=== PATIENT | female | born 1960 | race African-American/Black ===

== ENCOUNTER 2017-05-17 11:34 | Inpatient (IN) | payer OTHER ==
[2017-05-17 11:53] VITALS: BMI 33.2
--- NOTE | 2017-05-17 14:41 | HP ---
CIWA Score - CIWA Score Nausea/Vomitin-No Nausea/No Vomiting Muscle Tremors: 4-Moderate,w/Arms Extend Anxiety: 3 Agitation: 4-Moderately Restless Paroxysmal Sweats: 3 Orientation: 0-Oriented Tacttile Disturbances: 0-None Auditory Disturbances: 0-None Visual Disturbances: 0-None Headache: 1-Very Mild CIWA-Ar Total Score: 15 Admission ROS BHS - HPI Chief Complaint: I am here for detox. Allergies/Adverse Reactions: Allergies Allergy/AdvReac Type Severity Reaction Status Date / Time No Known Allergies Allergy Verified 05/17/17 12:16 History of Present Illness: pt is a 57yr old female with a history of alcohol and crack/cocaine dependence seeking detox for treatment. Exam Limitations: No Limitations - Ebola screening Have you traveled outside of the country in the last 21 days: No Have you had contact with anyone from an Ebola affected area: No Have you been sick,other than usual withdrawal symptoms: No Do you have a fever: No - Review of Systems Constitutional: Chills, Diaphoresis, Changes in sleep EENT: reports: No Symptoms Reported Respiratory: reports: No Symptoms reported Cardiac: reports: Syncope GI: reports: Poor Fluid Intake, Indigestion : reports: No Symptoms Reported Musculoskeletal: reports: Back Pain Integumentary: reports: Flushing, Sweating Neuro: reports: Headache, Tingling, Tremors Endocrine: reports: Excessive Sweating, Flushing, Intolerance to Cold, Intolerance to Heat Hematology: reports: No Symptoms Reported Psychiatric: reports: Judgement Intact, Mood/Affect Appropiate, Orientated x3, Agitated, Anxious Other Systems: Reviewed and Negative Patient History - Patient Medical History Hx Anemia: No Hx Asthma: Yes (Pt is on MDI.) Hx Chronic Obstructive Pulmonary Disease (COPD): No Hx Cancer: No Hx Cardiac Disorders: No Hx Congestive Heart Failure: No Hx Hypertension: No Hx Hypercholesterolemia: No Hx Pacemaker: No HX Cerebrovascular Accident: No Hx Seizures: No Hx Dementia: No Hx Diabetes: No Hx Gastrointestinal Disorders: Yes (GERD) Hx Liver Disease: No Hx Genitourinary Disorders: No Hx Sexually Transmitted Disorders: No Hx Renal Disease (ESRD): No Hx Thyroid Disease: No Hx Human Immunodeficiency Virus (HIV): No (negative) Hx Hepatitis C: Yes (treated and undectable 2005) Hx Depression: Yes Hx Suicide Attempt: Yes (Tried to overdose in 2011) Hx Bipolar Disorder: No Hx Schizophrenia: No - Patient Surgical History Past Surgical History: No Hx Neurologic Surgery: No Hx Cataract Extraction: No Hx Cardiac Surgery: No Hx Lung Surgery: No Hx Breast Surgery: No Hx Breast Biopsy: No Hx Abdominal Surgery: No Hx Appendectomy: No Hx Cholecystectomy: No Hx Genitourinary Surgery: No Hx Section: No Hx Orthopedic Surgery: No Other Surgical History: L inguinal hernia repair Anesthesia Reaction: No - PPD History Previous Implant?: Yes Documented Results: Positive w/o proof Implanted On Prior [facility] Admission?: No PPD to be Administered?: No - Reproductive History Patient is a Female of Child Bearing Age (11 -55 yrs old): No Last Menstrual Period: 09/09/09 Patient : No - Smoking Cessation Smoking history: Current every day smoker Have you smoked in the past 12 months: Yes Aproximately how many cigarettes per day: 4 Hx Chewing Tobacco Use: No Initiated information on smoking cessation: Yes 'Breaking Loose' booklet given: 05/17/17 - Substance & Tx. History Hx Alcohol Use: Yes Hx Substance Use: Yes Substance Use Type: Alcohol, Cocaine Hx Substance Use Treatment: Yes (last detox [facility] 2011) - Substances Abused Alcohol Route: Oral Frequency: Daily Amount used: 8 24 OZ CANS OF BEER Age of first use: 19 Date of Last Use: 05/17/17 Crack Route: Smoking Frequency: Daily Amount used: $300 Age of first use: 24 Date of Last Use: 05/16/17 Family Disease History - Family Disease History Family Disease History: Diabetes: Mother (), [place]: Mother Admission Physical Exam [facility] - Vital Signs Vital Signs: Vital Signs - 24 hr 05/17/17 11:48 Temperature 96.7 F L Pulse Rate 77 Respiratory 20 Rate Blood Pressure 117/69 - Physical General Appearance: Yes: Appropriately Dressed, Moderate Distress, Tremorous, Irritable, Sweating, Anxious HEENTM: Yes: Hearing grossly Normal, Normal Voice Respiratory: Yes: Lungs Clear, Normal Breath Sounds, No Respiratory Distress Neck: Yes: No masses,lesions,Nodules Breast: Yes: Within Normal Limits Cardiology: Yes: Regular Rhythm, Regular Rate, S1, S2 Abdominal: Yes: Normal Bowel Sounds, Non Tender, Soft Genitourinary: Yes: Within Normal Limits Back: Yes: Normal Inspection Musculoskeletal: Yes: Back pain Extremities: Yes: Normal Capillary Refill, Normal Inspection, Tremors Neurological: Yes: Fully Oriented, Alert, Normal Response Integumentary: Yes: Normal Color Lymphatic: Yes: Within Normal Limits - Diagnostic (1) Crack cocaine use Current Visit: Yes Status: Chronic (2) Alcohol dependence with uncomplicated withdrawal Current Visit: Yes Status: Chronic (3) Nicotine dependence Current Visit: Yes Status: Chronic Qualifiers: Nicotine product type: cigarettes Substance use status: uncomplicated Qualified Code(s): F17.210 - Nicotine dependence, cigarettes, uncomplicated (4) Heart burn Current Visit: Yes Status: Chronic Cleared for Admission [facility] - Detox or Rehab [facility] Level of Care: Medically Managed Detox Regimen/Protocol: Librium [facility] Breath Alcohol Content Breath Alcohol Content: 0.092 Urine Pregancy Test - Result Urine Test Results: Negative- NO Line Present Urine Drug Screen - Results Drug Screen Negative: No Urine Drug Screen Results: ROBIN-Cocaine
[2017-05-17] MEDS ORDERED: ACETAMINOPHEN 325 MG TABLET (FP) PO PRN (14:42)
[2017-05-17] MEDS ORDERED: MENTHOL/PHENOL 1 EACH UD MM PRN (14:42)
[2017-05-17] MEDS ORDERED: chlordiazePOXIDE HCL 25 MG CAPSULE PO PRN (14:42)
[2017-05-17] MEDS ORDERED: hydrOXYzine PAMOATE 50 MG CAPSULE (FP) PO PRN (14:42)
[2017-05-17] MEDS ORDERED: MAGNESIUM HYDROX 2400MG/30ML ORAL SUSPENSION 30 ML CUP PO PRN (14:42)
[2017-05-17] MEDS ORDERED: LOPERAMIDE HCL 2 MG CAPSULE PO PRN (14:42)
[2017-05-17] MEDS ORDERED: guaiFENesin/D-METHORPHAN HB 10 ML UNIT-DOSE CUPS PO PRN (14:42)
[2017-05-17] MEDS ORDERED: MAGNESIUM CITRATE 300 ML BOTTLE PO PRN (14:42)
[2017-05-17] MEDS ORDERED: P-EPHED 60MG/TRIPROLIDI 2.5MG TABLET PO PRN (14:42)
[2017-05-17] MEDS ORDERED: chlordiazePOXIDE HCL 25 MG CAPSULE PO ONE (16:00)
[2017-05-17 17:22] LABS: URINE APPEARANCE SLCLOUDY; URINE BILIRUBIN NEGATIVE (NEGATIVE); URINE BLOOD NEGATIVE (NEGATIVE); URINE COLOR STRAW; URINE GLUCOSE (UA) 1+ (NEGATIVE); URINE KETONE NEGATIVE (NEGATIVE); URINE LEUK ESTERASE TRACE (NEGATIVE); URINE NITRITE NEGATIVE (NEGATIVE); URINE PROTEIN NEGATIVE (NEGATIVE); URINE UROBILINOGEN NEGATIVE mg/dL (0.2-1.0)
[2017-05-17 17:37] LABS: URINE BACTERIA RARE /hpf (NONE SEEN)
[2017-05-17] MEDS: chlordiazePOXIDE HCL 25 MG CAPSULE PO SCH ×2 (18:11→22:42)
[2017-05-17 20:31] LABS: HIV 1 & 2 AB NEGATIVE; HIV 1 AGp24 NEGATIVE
[2017-05-17] MEDS: THIAMINE HCL 100 MG TABLET (FP) PO SCH (22:37)
[2017-05-17] MEDS: RANITIDINE HCL 150 MG TABLET (FP) PO SCH (22:38)
[2017-05-17] MEDS: IBUPROFEN 400 MG TABLET (FP) PO PRN (22:41)
[2017-05-17] MEDS: ACLIDINIUM BROMIDE 400 MCG/INH AERO.POWD IH SCH (23:27)
[2017-05-18] MEDS: chlordiazePOXIDE HCL 25 MG CAPSULE PO SCH ×4 (06:07→22:28)
[2017-05-18 09:48] LABS: MCHC 33.6 g/dl (32.0-36.0); MEAN CELL VOLUME 92.5 fl (80-96); MEAN PLT VOLUME 9.4 fl (7.5-11.1); PLATELET COUNT 209 K/MM3 (134-434); RDW 13.5 % (11.6-15.6); WHITE BLOOD COUNT 4.4 K/mm3 (4.0-10.0)
--- NOTE | 2017-05-18 10:01 | PN ---
S CIWA - CIWA Score Nausea/Vomitin Muscle Tremors: 4-Moderate,w/Arms Extend Anxiety: 4-Mod. Anxious/Guarded Agitation: 4-Moderately Restless Paroxysmal Sweats: 3 Orientation: 0-Oriented Tacttile Disturbances: 1-Very Mild Itch/Numbness Auditory Disturbances: 0-None Visual Disturbances: 0-None Headache: 1-Very Mild CIWA-Ar Total Score: 20 BHS Progress Note (SOAP) Subjective: nausa, sweats, interrupted sleep, anxiety, tremors Objective: 05/18/17 10:01 Vital Signs - 8 hr 05/18/17 05/18/17 03:30 06:59 Temperature 96.3 F L Pulse Rate 64 Respiratory 18 16 Rate Blood Pressure 107/59 Laboratory Tests 05/17/17 05/17/17 13:00 16:30 Urine Color Straw Urine Appearance Slcloudy Urine pH 5.0 D Ur Specific [place] <= 1.005 Urine Protein Negative Urine Glucose (UA) 1+ H Urine Ketones Negative Urine Blood Negative Urine Nitrite Negative Urine Bilirubin Negative Urine Urobilinogen Negative Ur Leukocyte Esterase Trace Urine RBC None Urine WBC None Ur Epithelial Cells Few Urine Bacteria Rare HIV 1&2 Antibody Screen Negative HIV P24 Antigen Negative labs pending Assessment: 05/18/17 10:01 withdrawal sx Plan: cont detox, check labs
[2017-05-18 10:51] LABS: ALBUMIN 3.8 g/dl (3.4-5.0); ANION GAP 11 (8-16); CO2 24 mmol/L (21-32); GLUCOSE,RANDOM 187 mg/dL (74-106); SGOT/AST 14 U/L (15-37); SGPT/ALT 25 U/L (12-78)
[2017-05-18 10:53] LABS: ALK PHOS 138 U/L (45-117); BILIRUBIN,TOTAL 0.5 mg/dL (0.2-1.0); TOT PROT 7.3 g/dl (6.4-8.2)
[2017-05-18] MEDS: ACLIDINIUM BROMIDE 400 MCG/INH AERO.POWD IH SCH ×2 (11:08→22:45)
[2017-05-18] MEDS: NICOTINE 21 MG/24 HOURS TOPICAL PATCH TD SCH (11:09)
[2017-05-18] MEDS: RANITIDINE HCL 150 MG TABLET (FP) PO SCH ×2 (11:09→22:29)
[2017-05-18] MEDS: PRENATAL VITAMINS W/ FOLIC ACID TABLET (FP) PO SCH (11:09)
[2017-05-18] MEDS: NICOTINE POLACRILEX 4 MG GUM BC PRN ×3 (11:12→22:32)
--- NOTE | 2017-05-18 14:22 | CONSULT ---
[facility] Psychiatric Consult - Data Date of interview: 05/18/17 Admission source: [facility] Identifying data: Readmission to [facility] for this 57 y/o AA female seeking detox treatment on for alcohol and cocaine (crack) dependence.Patient is single,a mother of two,domiciled,unemployed and supported on Public Assistance. Substance Abuse History: Confirmed by patient in this interview. Smoking Cessation. Smoking history: Current every day smoker. Have you smoked in the past 12 months: Yes. Aproximately how many cigarettes per day: 4. Hx Chewing Tobacco Use: No. Initiated information on smoking cessation: Yes. 'Breaking Loose' booklet given: 05/17/17. - Substance & Tx. History. Hx Alcohol Use: Yes. Hx Substance Use: Yes. Substance Use Type: Alcohol, Cocaine. Hx Substance Use Treatment: Yes (last detox [facility] 2011). - Substances Abused. Alcohol. Route: Oral. Frequency: Daily. Amount used: 8 24 OZ CANS OF BEER. Age of first use: 19. Date of Last Use: 05/17/17. Crack. Route: Smoking. Frequency: Daily. Amount used: $300. Age of first use: 24. Date of Last Use: 05/16/17 Medical History: Remarkable for arthritis (both knees + shoulders),GERD, hepatitis C,bronchial asthma and history of left inguinal herniorraphy. Psychiatric History: Patient admits to a history of multiple psychiatric hospitalizations ([facility]) .Diagnosed with MDD.Ms Yusuf declares that she is followed at the [facility] in the [place].Prescribed wellbutrin 300 mg/am + 150 mg/ hs.She reports a history of suicide attempts (overdoses with medications). Physical/Sexual Abuse/Trauma History: No reported history of abuse. Additional Comment: Urine Drug Screen Results: ROBIN-Cocaine.Noted. Mental Status Exam - Mental Status Exam Alert and Oriented to: Time, Place, Person Cognitive Function: Good Patient Appearance: Well Groomed (overweight) Mood: Hopeful, Euthymic Affect: Appropriate, Normal Range Patient Behavior: Appropriate, Cooperative Speech Pattern: Clear Voice Loudness: Normal Thought Process: Intact, Goal Oriented Thought Disorder: Not Present Hallucinations: Denies Suicidal Ideation: Denies Homicidal Ideation: Denies Insight/Judgement: Poor Sleep: Fair Appetite: Good Muscle strength/Tone: Normal Gait/Station: Other (walks with a limp) Psychiatric Findings - Problem List ([place] 1, 2,3) (1) Alcohol dependence with uncomplicated withdrawal Current Visit: Yes Status: Acute (2) Cocaine dependence Current Visit: Yes Status: Acute (3) Nicotine dependence Current Visit: Yes Status: Acute Qualifiers: Nicotine product type: cigarettes Substance use status: uncomplicated Qualified Code(s): F17.210 - Nicotine dependence, cigarettes, uncomplicated (4) Substance induced mood disorder Current Visit: Yes Status: Acute (5) MDD (major depressive disorder) Current Visit: Yes Status: Chronic Comment: History. (6) Heart burn Current Visit: Yes Status: Chronic - Initial Treatment Plan Initial Treatment Plan: Psychoeducation.Detoxification.Will initiate treatment with wellbutrin XL 150 mg today and titrate to 300 mg po daily.Patient is informed of risk of seizures.Advised not to take that medication at bedtime.She agrees with this careplan.Observation.
[2017-05-18] MEDS: THIAMINE HCL 100 MG TABLET (FP) PO SCH (22:29)
[2017-05-18] MEDS: ALBUTEROL SO4 6.7 GM HFA INHALER IH PRN (22:32)
[2017-05-18] MEDS: diphenhydrAMINE HCL 50 MG CAPSULE PO PRN (22:33)
[2017-05-18] MEDS: MAG HYDROX/AL HYDROX/SIMETH 30 ML UNIT-DOSE CUP PO PRN (22:53)
[2017-05-19] MEDS: chlordiazePOXIDE HCL 25 MG CAPSULE PO SCH ×2 (06:58→10:54)
--- NOTE | 2017-05-19 09:31 | EKG ---
Test Reason : Blood Pressure : / mmHG Vent. Rate : 068 BPM Atrial Rate : 068 BPM P-R Int : 146 ms QRS Dur : 080 ms QT Int : 390 ms P-R-T Axes : 052 041 052 degrees QTc Int : 414 ms NORMAL SINUS RHYTHM NORMAL ECG NO PREVIOUS ECGS AVAILABLE Confirmed by MD PARUL, PHILIP ([id number]) on 05/19/2017 9:31:45 AM Referred By: Confirmed By:PHILIP TERAN MD
[2017-05-19] MEDS: RANITIDINE HCL 150 MG TABLET (FP) PO SCH ×2 (10:54→22:52)
[2017-05-19] MEDS: ACLIDINIUM BROMIDE 400 MCG/INH AERO.POWD IH SCH ×2 (10:54→22:53)
[2017-05-19] MEDS: PRENATAL VITAMINS W/ FOLIC ACID TABLET (FP) PO SCH (10:54)
[2017-05-19] MEDS: NICOTINE 21 MG/24 HOURS TOPICAL PATCH TD SCH (10:56)
[2017-05-19] MEDS: NICOTINE POLACRILEX 4 MG GUM BC PRN ×3 (10:57→22:55)
[2017-05-19] MEDS: ALBUTEROL SO4 6.7 GM HFA INHALER IH PRN ×2 (10:57→22:53)
[2017-05-19] MEDS: IBUPROFEN 400 MG TABLET (FP) PO PRN ×2 (12:38→22:56)
--- NOTE | 2017-05-19 13:10 | PN ---
S CIWA - CIWA Score Nausea/Vomitin Muscle Tremors: 2 Anxiety: 2 Agitation: 2 Paroxysmal Sweats: 2 Orientation: 0-Oriented Tacttile Disturbances: 1-Very Mild Itch/Numbness Auditory Disturbances: 0-None Visual Disturbances: 1-Very Mild Sensitivity Headache: 3-Moderate CIWA-Ar Total Score: 15 S Progress Note (SOAP) Subjective: headache, shakes and sweats Objective: 05/19/17 13:09 Vital Signs - 8 hr 05/19/17 05/19/17 06:55 10:00 Temperature 98.0 F 97.2 F L Pulse Rate 75 73 Respiratory 18 18 Rate Blood Pressure 120/67 109/75 Laboratory Last Values WBC 4.4 K/mm3 (4.0-10.0) 05/18/17 06:00 RBC 4.79 M/mm3 (3.60-5.2) 05/18/17 06:00 Hgb 14.9 GM/dL (10.7-15.3) 05/18/17 06:00 Hct 44.3 % (32.4-45.2) 05/18/17 06:00 MCV 92.5 fl (80-96) 05/18/17 06:00 MCH 31.0 pg (25.7-33.7) 05/18/17 06:00 MCHC 33.6 g/dl (32.0-36.0) 05/18/17 06:00 RDW 13.5 % (11.6-15.6) 05/18/17 06:00 Plt Count 209 K/MM3 (134-434) D 05/18/17 06:00 MPV 9.4 fl (7.5-11.1) 05/18/17 06:00 Sodium 143 mmol/L (136-145) 05/18/17 06:00 Potassium 3.8 mmol/L (3.5-5.1) 05/18/17 06:00 Chloride 108 mmol/L (98-107) H 05/18/17 06:00 Carbon Dioxide 24 mmol/L (21-32) 05/18/17 06:00 Anion Gap 11 (8-16) 05/18/17 06:00 BUN 14 mg/dL (7-18) 05/18/17 06:00 Creatinine 1.0 mg/dL (0.55-1.02) D 05/18/17 06:00 Creat Clearance w eGFR 57.35 (>60) 05/18/17 06:00 Random Glucose 187 mg/dL (74-106) H D 05/18/17 06:00 Calcium 9.0 mg/dL (8.5-10.1) 05/18/17 06:00 Total Bilirubin 0.5 mg/dL (0.2-1.0) D 05/18/17 06:00 AST 14 U/L (15-37) L D 05/18/17 06:00 ALT 25 U/L (12-78) 05/18/17 06:00 Alkaline Phosphatase 138 U/L (45-117) H D 05/18/17 06:00 Total Protein 7.3 g/dl (6.4-8.2) 05/18/17 06:00 Albumin 3.8 g/dl (3.4-5.0) 05/18/17 06:00 Urine Color Straw 05/17/17 16:30 Urine Appearance Slcloudy 05/17/17 16:30 Urine pH 5.0 (5.0-8.0) D 05/17/17 16:30 Ur Specific [place] <= 1.005 (1.005-1.025) 05/17/17 16:30 Urine Protein Negative (NEGATIVE) 05/17/17 16:30 Urine Glucose (UA) 1+ (NEGATIVE) H 05/17/17 16:30 Urine Ketones Negative (NEGATIVE) 05/17/17 16:30 Urine Blood Negative (NEGATIVE) 05/17/17 16:30 Urine Nitrite Negative (NEGATIVE) 05/17/17 16:30 Urine Bilirubin Negative (NEGATIVE) 05/17/17 16:30 Urine Urobilinogen Negative mg/dL (0.2-1.0) 05/17/17 16:30 Ur Leukocyte Esterase Trace (NEGATIVE) 05/17/17 16:30 Urine RBC None /hpf (0-3) 05/17/17 16:30 Urine WBC None /hpf (3-5) 05/17/17 16:30 Ur Epithelial Cells Few /hpf (FEW) 05/17/17 16:30 Urine Bacteria Rare /hpf (NONE SEEN) 05/17/17 16:30 RPR Titer Nonreactive (NONREACTIVE) 05/18/17 06:00 HIV 1&2 Antibody Screen Negative 05/17/17 13:00 HIV P24 Antigen Negative 05/17/17 13:00 labs noted Assessment: 05/19/17 13:10 withdrawal sx Plan: continue detox
[2017-05-19] MEDS: chlordiazePOXIDE 5 MG CAPSULE PO SCH ×2 (17:03→22:52)
[2017-05-19] MEDS: diphenhydrAMINE HCL 50 MG CAPSULE PO PRN (22:52)
[2017-05-19] MEDS: THIAMINE HCL 100 MG TABLET (FP) PO SCH (22:52)
[2017-05-20] MEDS: chlordiazePOXIDE 5 MG CAPSULE PO SCH ×2 (05:45→10:25)
[2017-05-20] MEDS: MAG HYDROX/AL HYDROX/SIMETH 30 ML UNIT-DOSE CUP PO PRN (05:46)
[2017-05-20] MEDS: PRENATAL VITAMINS W/ FOLIC ACID TABLET (FP) PO SCH (10:25)
[2017-05-20] MEDS: RANITIDINE HCL 150 MG TABLET (FP) PO SCH ×2 (10:26→22:24)
[2017-05-20] MEDS: ACLIDINIUM BROMIDE 400 MCG/INH AERO.POWD IH SCH ×2 (10:26→23:06)
[2017-05-20] MEDS: NICOTINE 21 MG/24 HOURS TOPICAL PATCH TD SCH (10:29)
[2017-05-20] MEDS: ALBUTEROL SO4 6.7 GM HFA INHALER IH PRN (10:29)
--- NOTE | 2017-05-20 13:31 | PN ---
BHS Progress Note (SOAP) Subjective: Sweating,interrupted sleep,restless Objective: 05/20/17 13:30 Vital Signs - 8 hr 05/20/17 05/20/17 06:50 10:00 Temperature 98.0 F 97.7 F Pulse Rate 69 77 Respiratory 18 18 Rate Blood Pressure 115/68 98/52 Laboratory Last Values WBC 4.4 K/mm3 (4.0-10.0) 05/18/17 06:00 RBC 4.79 M/mm3 (3.60-5.2) 05/18/17 06:00 Hgb 14.9 GM/dL (10.7-15.3) 05/18/17 06:00 Hct 44.3 % (32.4-45.2) 05/18/17 06:00 MCV 92.5 fl (80-96) 05/18/17 06:00 MCH 31.0 pg (25.7-33.7) 05/18/17 06:00 MCHC 33.6 g/dl (32.0-36.0) 05/18/17 06:00 RDW 13.5 % (11.6-15.6) 05/18/17 06:00 Plt Count 209 K/MM3 (134-434) D 05/18/17 06:00 MPV 9.4 fl (7.5-11.1) 05/18/17 06:00 Sodium 143 mmol/L (136-145) 05/18/17 06:00 Potassium 3.8 mmol/L (3.5-5.1) 05/18/17 06:00 Chloride 108 mmol/L (98-107) H 05/18/17 06:00 Carbon Dioxide 24 mmol/L (21-32) 05/18/17 06:00 Anion Gap 11 (8-16) 05/18/17 06:00 BUN 14 mg/dL (7-18) 05/18/17 06:00 Creatinine 1.0 mg/dL (0.55-1.02) D 05/18/17 06:00 Creat Clearance w eGFR 57.35 (>60) 05/18/17 06:00 Random Glucose 187 mg/dL (74-106) H D 05/18/17 06:00 Calcium 9.0 mg/dL (8.5-10.1) 05/18/17 06:00 Total Bilirubin 0.5 mg/dL (0.2-1.0) D 05/18/17 06:00 AST 14 U/L (15-37) L D 05/18/17 06:00 ALT 25 U/L (12-78) 05/18/17 06:00 Alkaline Phosphatase 138 U/L (45-117) H D 05/18/17 06:00 Total Protein 7.3 g/dl (6.4-8.2) 05/18/17 06:00 Albumin 3.8 g/dl (3.4-5.0) 05/18/17 06:00 Urine Color Straw 05/17/17 16:30 Urine Appearance Slcloudy 05/17/17 16:30 Urine pH 5.0 (5.0-8.0) D 05/17/17 16:30 Ur Specific [place] <= 1.005 (1.005-1.025) 05/17/17 16:30 Urine Protein Negative (NEGATIVE) 05/17/17 16:30 Urine Glucose (UA) 1+ (NEGATIVE) H 05/17/17 16:30 Urine Ketones Negative (NEGATIVE) 05/17/17 16:30 Urine Blood Negative (NEGATIVE) 05/17/17 16:30 Urine Nitrite Negative (NEGATIVE) 05/17/17 16:30 Urine Bilirubin Negative (NEGATIVE) 05/17/17 16:30 Urine Urobilinogen Negative mg/dL (0.2-1.0) 05/17/17 16:30 Ur Leukocyte Esterase Trace (NEGATIVE) 05/17/17 16:30 Urine RBC None /hpf (0-3) 05/17/17 16:30 Urine WBC None /hpf (3-5) 05/17/17 16:30 Ur Epithelial Cells Few /hpf (FEW) 05/17/17 16:30 Urine Bacteria Rare /hpf (NONE SEEN) 05/17/17 16:30 RPR Titer Nonreactive (NONREACTIVE) 05/18/17 06:00 HIV 1&2 Antibody Screen Negative 05/17/17 13:00 HIV P24 Antigen Negative 05/17/17 13:00 labs noted Assessment: 05/20/17 13:30 Withdrawal sx. Plan: Continue detox
[2017-05-20] MEDS: chlordiazePOXIDE HCL 10 MG CAPSULE PO SCH ×2 (17:26→22:24)
[2017-05-20] MEDS: diphenhydrAMINE HCL 50 MG CAPSULE PO PRN (22:24)
[2017-05-20] MEDS: THIAMINE HCL 100 MG TABLET (FP) PO SCH (22:24)
[2017-05-20] MEDS: IBUPROFEN 400 MG TABLET (FP) PO PRN (22:24)
[2017-05-21] MEDS: chlordiazePOXIDE HCL 10 MG CAPSULE PO SCH ×2 (06:06→10:58)
[2017-05-21 06:43] VITALS: BP 102/67; PULSE 73; TEMP 96.8
--- NOTE | 2017-05-21 08:57 | DS ---
[facility] Detox Discharge Summary Admission Date: 05/17/17 Discharge Date: 05/21/17 - History Present History: Alcohol Dependence, Cocaine Dependence - Physical Exam Results Vital Signs: Vital Signs Temperature 96.8 F L 05/21/17 06:00 Pulse Rate 73 05/21/17 06:00 Respiratory Rate 18 05/21/17 06:00 Blood Pressure 102/67 05/21/17 06:00 O2 Sat by Pulse Oximetry (%) - Treatment Hospital Course: Detox Protocol Followed, Detoxed Safely, Responded well, Discharged Condition Good, Rehab Referral Accepted - Medication Discharge Medications: Ambulatory Orders Albuterol Sulfate Inhaler - [Ventolin HFA Inhaler -] 2 inh IH Q4H PRN #0 inh 30/08 Bupropion HCl [Wellbutrin Sr] 150 mg PO DAILY 05/17/17 Bupropion HCl [Wellbutrin Xl] 300 mg PO HS 05/17/17 Ranitidine [Zantac -] 300 mg PO HS 05/17/17 Umeclidinium [place] [Incruse Ellipta] 62.5 mcg IH DAILY 05/17/17 Bupropion HCl [Wellbutrin Xl -] 300 mg PO DAILY #30 tab.sr.24h 05/18/17 - Diagnosis (1) Crack cocaine use Current Visit: Yes Status: Chronic (2) Alcohol dependence with uncomplicated withdrawal Current Visit: Yes Status: Chronic (3) Nicotine dependence Current Visit: Yes Status: Chronic Qualifiers: Nicotine product type: cigarettes Substance use status: uncomplicated Qualified Code(s): F17.210 - Nicotine dependence, cigarettes, uncomplicated (4) Heart burn Current Visit: Yes Status: Chronic - AMA Did Patient Leave Against Medical Advice: No
[2017-05-21] MEDS: ACLIDINIUM BROMIDE 400 MCG/INH AERO.POWD IH SCH (10:56)
[2017-05-21] MEDS: PRENATAL VITAMINS W/ FOLIC ACID TABLET (FP) PO SCH (10:57)
[2017-05-21] MEDS: RANITIDINE HCL 150 MG TABLET (FP) PO SCH (10:58)
[2017-05-21] MEDS: NICOTINE POLACRILEX 4 MG GUM BC PRN (10:59)
[2017-05-21] MEDS: NICOTINE 21 MG/24 HOURS TOPICAL PATCH TD SCH (11:48)
== END 2017-05-21 11:27 | disposition other institution (70) | DRG 774 ==
LOC: YASAS 11:34 → Y6N 15:30
PROVIDERS: ADMIT Internal Medicine Addiction Medicine; ATTEND Internal Medicine Addiction Medicine
PROC: HZ2ZZZZ Detoxification Services for Substance Abuse Treatment (ICD-10-PCS; principal; 2017-05-17)
DX: F10.230 Alcohol dependence with withdrawal, uncomplicated (principal); F14.20 Cocaine dependence, uncomplicated; F17.210 Nicotine dependence, cigarettes, uncomplicated; F33.9 Major depressive disorder, recurrent, unspecified; F19.24 Other psychoactive substance dependence with psychoactive substance-induced mood disorder; J45.909 Unspecified asthma, uncomplicated; K21.9 Gastro-esophageal reflux disease without esophagitis; Z91.5 Personal history of self-harm; Z86.19 Personal history of other infectious and parasitic diseases
CPT/HCPCS: 36415; 71020-TC; 80053; 81003; 81015; 85027; 86593; 87389; 93005; 93010

== ENCOUNTER 2017-05-21 11:59 | Inpatient (IN) | payer OTHER ==
[2017-05-21] MEDS ORDERED: MAGNESIUM CITRATE 300 ML BOTTLE PO PRN (13:57)
[2017-05-21] MEDS ORDERED: MAGNESIUM HYDROX 2400MG/30ML ORAL SUSPENSION 30 ML CUP PO PRN (13:57)
[2017-05-21] MEDS ORDERED: P-EPHED 60MG/TRIPROLIDI 2.5MG TABLET PO PRN (13:57)
[2017-05-21] MEDS ORDERED: ACETAMINOPHEN 325 MG TABLET (FP) PO PRN (13:57)
[2017-05-21] MEDS ORDERED: LOPERAMIDE HCL 2 MG CAPSULE PO PRN (13:57)
[2017-05-21] MEDS ORDERED: MENTHOL/PHENOL 1 EACH UD MM PRN (13:57)
[2017-05-21] MEDS ORDERED: guaiFENesin/D-METHORPHAN HB 10 ML UNIT-DOSE CUPS PO PRN (13:57)
--- NOTE | 2017-05-21 14:01 | HP ---
[facility] Re[facility] Assess/Revision - Admission History Admitted to Rehab from: [facility] [place] Date of Admission to Rehab: 05/21/17 - Vital signs Vital Signs: Vital Signs Period Temp Pulse Resp BP Sys/Lopez Pulse Ox Last 24 Hr 97.4 F 106 20 112/76 - Findings Detox History & Physical reviewed: Yes Concur with findings: Yes
--- NOTE | 2017-05-21 14:21 | HP ---
Psychiatrist Admission - Data Date of interview: 05/21/17 Admission source: [address] [place] [address] Identifying data: This is the third admission to [address] [place] [address] for this 57 years old AA female single mother of 2,domiciled, supported by PA. Medical History: Significant for GERD,Hep C,Chronic arthritis,BA. Psychiatric History: Patient reports first contact with psychiatrsit about 25 years ago .She was admitted to [facility] due to psychotic episode, depression,suicidality.Patient was dx with Major depressive disorder and placed on antidepressants.patient reports 3 more suicidal attempts(DOD),about 6 psychiatric hospitalizations.Most recent was in December 2013 to [facility].Patient sees psychiatrist at [facility] in the [place].Current medications: Wellbutrin XL 450 mg po am. Physical/Sexual Abuse/Trauma History: denies history of abuse Vital Signs: Vital Signs - 24 hr 05/21/17 12:22 Temperature 97.4 F L Pulse Rate 106 H Respiratory 20 Rate Blood Pressure 112/76 Allergies/Adverse Reactions: Allergies Allergy/AdvReac Type Severity Reaction Status Date / Time No Known Allergies Allergy Verified 05/17/17 12:16 Date of last physical exam: 05/17/17 Concur with the findings of this exam: Yes - Substance Abuse/Tx History Hx Alcohol Use: Yes (reports drinking since 19 yo,8x24 oz beers daily) Hx Substance Use: Yes (cocaine since 24 yo,spending $300 daily ) Substance Use Type: Alcohol, Cocaine Hx Substance Use Treatment: Yes - Admission Criteria Previous failed treatment: Yes Poor recovery environment: Yes Comorbidities: Yes Lacks judgement: Yes Mental Status Exam - Mental Status Exam Alert and Oriented to: Time, Place, Person Cognitive Function: Grossly Intact Patient Appearance: Well Groomed Mood: Sad, Anxious Affect: Mood Congruent, Labile Patient Behavior: Cooperative Speech Pattern: Clear Voice Loudness: Normal Thought Process: Goal Oriented Thought Disorder: Not Present Hallucinations: Denies Suicidal Ideation: Denies Homicidal Ideation: Denies Insight/Judgement: Fair Sleep: Fair Appetite: Good Muscle strength/Tone: Normal Gait/Station: Normal Psychiatric Findings - Problem List ([place] 1, 2,3) (1) Cocaine dependence Current Visit: Yes Status: Chronic (2) MDD (major depressive disorder) Current Visit: Yes Status: Chronic Comment: History. (3) Nicotine dependence Current Visit: Yes Status: Chronic Qualifiers: Nicotine product type: cigarettes Substance use status: uncomplicated Qualified Code(s): F17.210 - Nicotine dependence, cigarettes, uncomplicated (4) Alcohol dependence Current Visit: Yes Status: Chronic - Initial Treatment Plan Initial Treatment Plan: Wellbutrin 300 mg po am,add Seroquel 50 mg po hs. Will monitor progress.
[2017-05-21] MEDS ORDERED: PNEUMOC 13-VAL CONJ-DIP CRM/PF 0.5 ML DISP.SYRIN IM ONE (15:02)
[2017-05-21] MEDS ORDERED: hydrOXYzine PAMOATE 50 MG CAPSULE (FP) PO PRN (15:46)
[2017-05-21] MEDS: THIAMINE HCL 100 MG TABLET (FP) PO SCH (21:36)
[2017-05-21] MEDS: QUEtiapine FUMARATE 50 MG TABLET PO SCH (21:36)
[2017-05-21] MEDS: NICOTINE POLACRILEX 2 MG GUM BUC PRN (21:37)
[2017-05-21] MEDS ORDERED: RANITIDINE HCL 150 MG TABLET (FP) PO SCH (22:00)
[2017-05-22] MEDS: PRENATAL VITAMINS W/ FOLIC ACID TABLET (FP) PO SCH (10:35)
[2017-05-22] MEDS: IBUPROFEN 400 MG TABLET (FP) PO PRN (10:36)
[2017-05-22] MEDS: NICOTINE POLACRILEX 2 MG GUM BUC PRN (10:38)
[2017-05-22] MEDS: NICOTINE 21 MG/24 HOURS TOPICAL PATCH TD SCH (10:38)
[2017-05-22] MEDS ORDERED: PNEUMOCOCCAL 23 VACCINE 0.5 ML VIAL IM ONE (12:00)
[2017-05-22] MEDS ORDERED: PT OWN MED DRAWER 7, Y5N ONE (21:30)
[2017-05-22] MEDS: THIAMINE HCL 100 MG TABLET (FP) PO SCH (21:30)
[2017-05-22] MEDS: RANITIDINE HCL 150 MG TABLET (FP) PO SCH (21:31)
[2017-05-22] MEDS: QUEtiapine FUMARATE 50 MG TABLET PO SCH (21:31)
[2017-05-22] MEDS: ACLIDINIUM BROMIDE 400 MCG/INH AERO.POWD IH SCH (21:32)
[2017-05-22] MEDS: MAG HYDROX/AL HYDROX/SIMETH 30 ML UNIT-DOSE CUP PO PRN (21:55)
[2017-05-23] MEDS: PRENATAL VITAMINS W/ FOLIC ACID TABLET (FP) PO SCH (10:07)
[2017-05-23] MEDS: RANITIDINE HCL 150 MG TABLET (FP) PO SCH ×2 (10:07→21:31)
[2017-05-23] MEDS: ACLIDINIUM BROMIDE 400 MCG/INH AERO.POWD IH SCH ×2 (10:07→21:31)
[2017-05-23] MEDS: NICOTINE 21 MG/24 HOURS TOPICAL PATCH TD SCH (10:08)
[2017-05-23] MEDS: ALBUTEROL SO4 18 GM HFA INHALER IH PRN (10:09)
[2017-05-23] MEDS: NICOTINE POLACRILEX 2 MG GUM BUC PRN (10:10)
[2017-05-23] MEDS: MAG HYDROX/AL HYDROX/SIMETH 30 ML UNIT-DOSE CUP PO PRN (15:30)
[2017-05-23] MEDS: THIAMINE HCL 100 MG TABLET (FP) PO SCH (21:31)
[2017-05-23] MEDS: QUEtiapine FUMARATE 50 MG TABLET PO SCH (21:31)
[2017-05-23] MEDS ORDERED: PT OWN MED DRAWER 7, Y5N ONE (21:33)
[2017-05-24] MEDS: ACLIDINIUM BROMIDE 400 MCG/INH AERO.POWD IH SCH ×2 (10:38→21:29)
[2017-05-24] MEDS: PRENATAL VITAMINS W/ FOLIC ACID TABLET (FP) PO SCH (10:38)
[2017-05-24] MEDS: NICOTINE 21 MG/24 HOURS TOPICAL PATCH TD SCH (10:38)
[2017-05-24] MEDS: RANITIDINE HCL 150 MG TABLET (FP) PO SCH ×2 (10:38→21:29)
[2017-05-24] MEDS ORDERED: PT OWN MED DRAWER 7, Y5N ONE (10:41)
[2017-05-24] MEDS: ALBUTEROL SO4 18 GM HFA INHALER IH PRN (10:42)
--- NOTE | 2017-05-24 14:43 | PN ---
BHS Progress Note Note: Fbs 154mg/dl, pt. has family hx of type II DM P : bgm bidac HA1C in am
[2017-05-24] MEDS: QUEtiapine FUMARATE 50 MG TABLET PO SCH (21:29)
[2017-05-24] MEDS: THIAMINE HCL 100 MG TABLET (FP) PO SCH (21:29)
[2017-05-25] MEDS ORDERED: PT OWN MED DRAWER 7, Y5N ONE ×2 (09:03→20:01)
[2017-05-25] MEDS: RANITIDINE HCL 150 MG TABLET (FP) PO SCH ×2 (10:25→22:00)
[2017-05-25] MEDS: PRENATAL VITAMINS W/ FOLIC ACID TABLET (FP) PO SCH (10:25)
[2017-05-25] MEDS: NICOTINE 21 MG/24 HOURS TOPICAL PATCH TD SCH (10:26)
[2017-05-25] MEDS: ACLIDINIUM BROMIDE 400 MCG/INH AERO.POWD IH SCH ×2 (10:26→22:02)
[2017-05-25] MEDS: ALBUTEROL SO4 18 GM HFA INHALER IH PRN (10:27)
[2017-05-25] MEDS: NICOTINE POLACRILEX 2 MG GUM BUC PRN ×2 (10:28→22:01)
[2017-05-25 14:34] LABS: ANION GAP 9 (8-16); CALCIUM 9.2 mg/dL (8.5-10.1); CO2 27 mmol/L (21-32); GLUCOSE,RANDOM 220 mg/dL (74-106)
[2017-05-25 14:38] LABS: ALK PHOS 105 U/L (45-117)
[2017-05-25] MEDS: diphenhydrAMINE HCL 50 MG CAPSULE PO PRN (21:59)
[2017-05-25] MEDS: QUEtiapine FUMARATE 50 MG TABLET PO SCH (22:00)
[2017-05-25] MEDS: THIAMINE HCL 100 MG TABLET (FP) PO SCH (22:00)
[2017-05-25] MEDS: IBUPROFEN 400 MG TABLET (FP) PO PRN (22:00)
[2017-05-26] MEDS: RANITIDINE HCL 150 MG TABLET (FP) PO SCH ×2 (10:07→21:32)
[2017-05-26] MEDS: PRENATAL VITAMINS W/ FOLIC ACID TABLET (FP) PO SCH (10:08)
[2017-05-26] MEDS: NICOTINE 21 MG/24 HOURS TOPICAL PATCH TD SCH (10:08)
[2017-05-26] MEDS: ACLIDINIUM BROMIDE 400 MCG/INH AERO.POWD IH SCH ×2 (10:09→21:33)
[2017-05-26] MEDS: NICOTINE POLACRILEX 2 MG GUM BUC PRN (10:10)
[2017-05-26] MEDS: QUEtiapine FUMARATE 50 MG TABLET PO SCH (21:32)
[2017-05-26] MEDS: THIAMINE HCL 100 MG TABLET (FP) PO SCH (21:32)
[2017-05-27] MEDS ORDERED: PT OWN MED DRAWER 7, Y5N ONE (08:53)
[2017-05-27] MEDS: PRENATAL VITAMINS W/ FOLIC ACID TABLET (FP) PO SCH (09:57)
[2017-05-27] MEDS: ACLIDINIUM BROMIDE 400 MCG/INH AERO.POWD IH SCH ×2 (09:57→21:42)
[2017-05-27] MEDS: RANITIDINE HCL 150 MG TABLET (FP) PO SCH ×2 (09:57→21:41)
[2017-05-27] MEDS: IBUPROFEN 400 MG TABLET (FP) PO PRN ×2 (09:58→21:42)
[2017-05-27] MEDS: NICOTINE POLACRILEX 2 MG GUM BUC PRN ×2 (09:59→21:43)
[2017-05-27] MEDS: NICOTINE 21 MG/24 HOURS TOPICAL PATCH TD SCH (09:59)
[2017-05-27] MEDS: THIAMINE HCL 100 MG TABLET (FP) PO SCH (21:41)
[2017-05-27] MEDS: QUEtiapine FUMARATE 50 MG TABLET PO SCH (21:41)
[2017-05-28] MEDS: RANITIDINE HCL 150 MG TABLET (FP) PO SCH ×2 (10:08→21:40)
[2017-05-28] MEDS: PRENATAL VITAMINS W/ FOLIC ACID TABLET (FP) PO SCH (10:09)
[2017-05-28] MEDS: NICOTINE 21 MG/24 HOURS TOPICAL PATCH TD SCH (10:09)
[2017-05-28] MEDS: ACLIDINIUM BROMIDE 400 MCG/INH AERO.POWD IH SCH ×2 (10:09→21:40)
[2017-05-28] MEDS: NICOTINE POLACRILEX 2 MG GUM BUC PRN (10:09)
[2017-05-28] MEDS ORDERED: PT OWN MED DRAWER 7, Y5N ONE (10:32)
[2017-05-28] MEDS: IBUPROFEN 400 MG TABLET (FP) PO PRN ×2 (12:34→21:41)
[2017-05-28] MEDS: THIAMINE HCL 100 MG TABLET (FP) PO SCH (21:39)
[2017-05-28] MEDS: QUEtiapine FUMARATE 50 MG TABLET PO SCH (21:40)
[2017-05-29] MEDS: ACLIDINIUM BROMIDE 400 MCG/INH AERO.POWD IH SCH ×2 (10:10→22:57)
[2017-05-29] MEDS: PRENATAL VITAMINS W/ FOLIC ACID TABLET (FP) PO SCH (10:10)
[2017-05-29] MEDS: RANITIDINE HCL 150 MG TABLET (FP) PO SCH ×2 (10:10→21:18)
[2017-05-29] MEDS: NICOTINE 21 MG/24 HOURS TOPICAL PATCH TD SCH (10:11)
[2017-05-29] MEDS: THIAMINE HCL 100 MG TABLET (FP) PO SCH (21:18)
[2017-05-29] MEDS: QUEtiapine FUMARATE 50 MG TABLET PO SCH (21:18)
[2017-05-29] MEDS: NICOTINE POLACRILEX 2 MG GUM BUC PRN (21:18)
[2017-05-30] MEDS: NICOTINE 21 MG/24 HOURS TOPICAL PATCH TD SCH (10:14)
[2017-05-30] MEDS: PRENATAL VITAMINS W/ FOLIC ACID TABLET (FP) PO SCH (10:15)
[2017-05-30] MEDS: RANITIDINE HCL 150 MG TABLET (FP) PO SCH ×2 (10:15→21:33)
[2017-05-30] MEDS: ACLIDINIUM BROMIDE 400 MCG/INH AERO.POWD IH SCH ×2 (10:15→21:33)
[2017-05-30] MEDS: THIAMINE HCL 100 MG TABLET (FP) PO SCH (21:33)
[2017-05-30] MEDS: QUEtiapine FUMARATE 50 MG TABLET PO SCH (21:33)
[2017-05-31] MEDS ORDERED: PT OWN MED DRAWER 7, Y5N ONE (08:47)
[2017-05-31] MEDS: PRENATAL VITAMINS W/ FOLIC ACID TABLET (FP) PO SCH (10:04)
[2017-05-31] MEDS: RANITIDINE HCL 150 MG TABLET (FP) PO SCH ×2 (10:04→21:38)
[2017-05-31] MEDS: ACLIDINIUM BROMIDE 400 MCG/INH AERO.POWD IH SCH ×2 (10:05→21:38)
[2017-05-31] MEDS: NICOTINE 21 MG/24 HOURS TOPICAL PATCH TD SCH (10:05)
[2017-05-31] MEDS: NICOTINE POLACRILEX 2 MG GUM BUC PRN (10:06)
[2017-05-31] MEDS: QUEtiapine FUMARATE 50 MG TABLET PO SCH (21:38)
[2017-05-31] MEDS: THIAMINE HCL 100 MG TABLET (FP) PO SCH (21:38)
[2017-06-01] MEDS ORDERED: PT OWN MED DRAWER 7, Y5N ONE (08:42)
[2017-06-01] MEDS: NICOTINE 21 MG/24 HOURS TOPICAL PATCH TD SCH (10:06)
[2017-06-01] MEDS: PRENATAL VITAMINS W/ FOLIC ACID TABLET (FP) PO SCH (10:06)
[2017-06-01] MEDS: ACLIDINIUM BROMIDE 400 MCG/INH AERO.POWD IH SCH ×2 (10:06→21:37)
[2017-06-01] MEDS: RANITIDINE HCL 150 MG TABLET (FP) PO SCH ×2 (10:06→21:37)
[2017-06-01] MEDS: THIAMINE HCL 100 MG TABLET (FP) PO SCH (21:37)
[2017-06-01] MEDS: diphenhydrAMINE HCL 50 MG CAPSULE PO PRN (21:37)
[2017-06-01] MEDS: QUEtiapine FUMARATE 50 MG TABLET PO SCH (21:37)
[2017-06-02] MEDS: PRENATAL VITAMINS W/ FOLIC ACID TABLET (FP) PO SCH (09:51)
[2017-06-02] MEDS: RANITIDINE HCL 150 MG TABLET (FP) PO SCH ×2 (09:51→21:35)
[2017-06-02] MEDS: NICOTINE 21 MG/24 HOURS TOPICAL PATCH TD SCH (09:51)
[2017-06-02] MEDS: ACLIDINIUM BROMIDE 400 MCG/INH AERO.POWD IH SCH ×2 (09:51→21:35)
[2017-06-02] MEDS ORDERED: PT OWN MED DRAWER 7, Y5N ONE (19:34)
[2017-06-02] MEDS: QUEtiapine FUMARATE 50 MG TABLET PO SCH (21:35)
[2017-06-02] MEDS: THIAMINE HCL 100 MG TABLET (FP) PO SCH (21:35)
[2017-06-03] MEDS: PRENATAL VITAMINS W/ FOLIC ACID TABLET (FP) PO SCH (10:07)
[2017-06-03] MEDS: NICOTINE 21 MG/24 HOURS TOPICAL PATCH TD SCH (10:07)
[2017-06-03] MEDS: ACLIDINIUM BROMIDE 400 MCG/INH AERO.POWD IH SCH ×2 (10:08→21:54)
[2017-06-03] MEDS: RANITIDINE HCL 150 MG TABLET (FP) PO SCH ×2 (10:08→21:54)
[2017-06-03] MEDS ORDERED: PT OWN MED DRAWER 7, Y5N ONE (19:31)
[2017-06-03] MEDS: QUEtiapine FUMARATE 50 MG TABLET PO SCH (21:54)
[2017-06-03] MEDS: THIAMINE HCL 100 MG TABLET (FP) PO SCH (21:54)
[2017-06-04 07:00] VITALS: BP 108/74; PULSE 64; TEMP 97.4
[2017-06-04] MEDS: RANITIDINE HCL 150 MG TABLET (FP) PO SCH (09:04)
[2017-06-04] MEDS: PRENATAL VITAMINS W/ FOLIC ACID TABLET (FP) PO SCH (09:04)
[2017-06-04] MEDS: NICOTINE 21 MG/24 HOURS TOPICAL PATCH TD SCH (09:04)
[2017-06-04] MEDS: ACLIDINIUM BROMIDE 400 MCG/INH AERO.POWD IH SCH (09:04)
--- NOTE | 2017-06-04 09:08 | PN ---
Psychiatric Progress Note Vital Signs: Vital Signs Period Temp Pulse Resp BP Sys/Lopez Pulse Ox Last 24 Hr 97.4 F 64 18-18 108/74 Date of Session: 06/04/17 Chief Complaint:: Discharge visit HPI: Cocaine and Alcohol dependence comorbid with Major depressive disorder. ROS: GERD,BA,Hep C. Current Medications: Active Medications Generic Name Dose Route Start Last Admin Trade Name Freq PRN Reason Stop Dose Admin Acetaminophen 650 mg 05/21/17 13:57 Tylenol - PO Q4H PRN FEVER OR PAIN Aclidinium [place] 1 puff 05/22/17 22:00 06/03/17 21:54 Tudorza - IH 1 puff BID MICHELLE Administration Al Hydroxide/Mg Hydroxide 30 ml 05/21/17 13:57 05/23/17 15:30 Mylanta Oral Suspension - PO 30 ml Q6H PRN Administration DYSPEPSIA Albuterol Sulfate 2 puff 05/21/17 13:59 05/25/17 10:27 Ventolin Hfa Inhaler - IH 2 puff Q4H PRN Administration SHORTNESS OF BREATH Bupropion HCl 300 mg 05/22/17 10:00 06/03/17 10:07 Wellbutrin Xl - PO 300 mg DAILY MICHELLE Administration Diphenhydramine HCl 50 mg 05/21/17 13:57 06/01/17 21:37 Benadryl - PO 50 mg HSMR1 PRN Administration FOR ITCHING Eucalyptus/Menthol/Phenol/Sorbitol 1 each 05/21/17 13:57 Cepastat Lozenge - MM Q4H PRN SORE THROAT Guaifenesin 10 ml 05/21/17 13:57 Robitussin Dm - PO Q6H PRN COUGH Hydroxyzine Pamoate 50 mg 05/21/17 15:46 Vistaril - PO Q4H PRN ANXIETY Ibuprofen 400 mg 05/21/17 13:57 05/28/17 21:41 Motrin - PO 400 mg Q6H PRN Administration PAIN Loperamide HCl 4 mg 05/21/17 13:57 Imodium - PO Q6H PRN DIARRHEA Magnesium Hydroxide 30 ml 05/21/17 13:57 Milk Of Magnesia - PO DAILY PRN CONSTIPATION Nicotine 21 mg 05/22/17 10:00 06/03/17 10:07 Nicoderm Patch - TD Not Given DAILY MICHELLE Nicotine Polacrilex 2 mg 05/21/17 13:57 05/31/17 10:06 Nicorette Gum - BUC 2 mg Q2H PRN Administration NICOTINE REPLACEMENT RX Multivit/Folic Acid/Iron 1 tab 05/22/17 10:00 06/03/17 10:07 Vitamins (Sjr) - PO 1 tab DAILY MICHELLE Administration Pseudoephedrine/Triprolidine 1 combo 05/21/17 13:57 Actifed - PO TID PRN NASAL CONGESTION Quetiapine Fumarate 50 mg 05/21/17 22:00 06/03/17 21:54 Seroquel - PO 50 mg HS MICHELLE Administration Ranitidine HCl 150 mg 05/22/17 22:00 06/03/17 21:54 Zantac - PO 150 mg BID MICHELLE Administration Thiamine HCl 100 mg 05/21/17 22:00 06/03/17 21:54 Vitamin B1 - PO 100 mg HS MICHELLE Administration Current Side Effect: No Lab tests ordered: No Lab tests reviewed: Yes Provider note:: Patient completed this program today.She has met her treatment goals and will continue to address her issues on outpatient basis.Patient reports finding that Wellbutrin XL 300 mg po am and Seroquel 50 mg o hs help to reduce mood swings,depression,and insomnia.scripts for 30 days provided.Patient will continue her outpatient stabilization at [facility]. Supportive therapy provided focusing on coping skills,support system utilization to maintai recovery. Patient is stable for discharge today. Total face to face time:: 30 Mental Status Exam - Mental Status Exam Alert and Oriented to: Time, Place, Person Cognitive Function: Grossly Intact Patient Appearance: Well Groomed Mood: Euthymic Affect: Appropriate, Mood Congruent Patient Behavior: Cooperative Speech Pattern: Clear Voice Loudness: Normal Thought Process: Goal Oriented Thought Disorder: Not Present Hallucinations: Denies Suicidal Ideation: Denies Homicidal Ideation: Denies Insight/Judgement: Fair Sleep: Fair Appetite: Good Muscle strength/Tone: Normal Gait/Station: Normal Psychiatric Treatment Plan - Problem List (1) Cocaine dependence Current Visit: Yes (2) MDD (major depressive disorder) Current Visit: Yes Comment: History. (3) Nicotine dependence Current Visit: Yes Qualifiers: Nicotine product type: cigarettes Substance use status: uncomplicated Qualified Code(s): F17.210 - Nicotine dependence, cigarettes, uncomplicated (4) Alcohol dependence Current Visit: Yes
== END 2017-06-04 09:15 | disposition home or self-care (01) | DRG 772 ==
LOC: YASAS 11:59 → Y3E 12:00
PROVIDERS: ADMIT Psychiatry & Neurology Psychiatry; ATTEND Psychiatry & Neurology Psychiatry
PROC: HZ42ZZZ Group Counseling for Substance Abuse Treatment, Cognitive-Behavioral (ICD-10-PCS; principal; 2017-05-21)
DX: F10.20 Alcohol dependence, uncomplicated (principal); F14.20 Cocaine dependence, uncomplicated; F17.210 Nicotine dependence, cigarettes, uncomplicated; F33.9 Major depressive disorder, recurrent, unspecified; K21.9 Gastro-esophageal reflux disease without esophagitis; J45.909 Unspecified asthma, uncomplicated; B18.2 Chronic viral hepatitis C; Z83.3 Family history of diabetes mellitus
CPT/HCPCS: 36415; 80048; 83036; 84075; 90732; G0009